=== PATIENT | female | born 1940 | race Caucasian/White ===

== ENCOUNTER 2023-11-03 22:24 | Inpatient (IN) ==
[2023-11-03] MEDS ORDERED: IOPAMIDOL 100 ML BOTTLE IV ONE (22:25)
[2023-11-03 23:24] LABS: Basophils # (Auto) 0.01 K/mcL (0.00-0.30); Basophils % (Auto) 0.1 % (0.0-2.0); Eosinophils # (Auto) 0.14 K/mcL (0.00-0.70); Eosinophils % (Auto) 1.3 % (0.0-7.0); Hematocrit 34.7 % (34.1-44.9); Hemoglobin 11.4 g/dL (11.2-15.7); Lymphocytes # (Auto) 0.66 K/mcL (1.50-4.80); Mean Cell Volume 97.5 fL (80.0-100.0); Mean Corpuscular HGB Conc 32.9 g/dL (31.0-36.0); Mean Platelet Volume 8.4 fL (8.8-12.5); Monocytes # (Auto) 1.71 K/mcL (0.10-0.90); Monocytes % (Auto) 15.6 % (1.0-12.0); Neutrophils % (Auto) 76.6 % (38.0-78.0); Platelet Count 287 K/mcL (140-440); RBC 3.56 M/mcL (3.59-5.38); Red Cell Distribution Width 13.4 % (11.5-14.5)
[2023-11-03] MEDS: DICYCLOMINE 20 MG/2 ML VIAL IM ONE (23:40)
[2023-11-03] MEDS: 0.9 % SODIUM CHLORIDE 1,000 ML IV ONE (23:40)
[2023-11-03 23:47] LABS: ALT/SGPT 25 U/L (<40); AST/SGOT 27 U/L (<32); Albumin/Globulin Ratio 1.5 (1.0-2.3); Alkaline Phosphatase 62 U/L (39-117); Bilirubin,Total 0.6 mg/dL (0.1-1.0); Blood Urea Nitrogen 15 mg/dL (8-23); Calcium 9.2 mg/dL (8.6-10.4); Carbon Dioxide 24 mmol/L (22-30); Chloride 92 mmol/L (96-108); Globulin 2.6 gm/dL (2.2-3.7); Glomerular Filtration Rate 68; Glucose 120 mg/dL (70-105); Potassium 3.9 mmol/L (3.3-5.1); Sodium 127 mmol/L (133-145)
[2023-11-04] MEDS: MAGNESIUM CITRATE 300 ML ORAL.SOL PO ONE (00:15)
[2023-11-04] MEDS: ONDANSETRON 4 MG/2 ML VIAL IV ONE ×2 (01:40→02:27)
[2023-11-04] MEDS: metroNIDAZOLE 500 MG/100 ML BAG IV ONE (01:40)
[2023-11-04] MEDS: FLEETS ADULT 1 DOSE ENEMA PR ONE (01:57)
[2023-11-04 01:59] LABS: Appearance,Urine CLEAR (Clear); Bilirubin,Urine Negative (Negative); Color,Urine YELLOW; Culture Indicated,Urine No; Glucose,Urine (UA) Negative (Negative); Ketones,Urine Negative (Negative); Leukocyte Esterase,Urine Negative /uL (Negative); Nitrate,Urine Negative (Negative); Protein,Urine Negative (Negative); Specific Gravity,Urine 1.021 (1.000-1.035); Urine Blood Negative ery/mcL (Negative)
[2023-11-04] MEDS: metroNIDAZOLE 500 MG/100 ML BAG IV SCH ×2 (02:23→08:47)
[2023-11-04] MEDS: CIPROFLOXACIN 400 MG/200 ML BAG IV ONE (02:35)
[2023-11-04] MEDS ORDERED: DICYCLOMINE 20 MG/2 ML VIAL IM PRN (02:49)
[2023-11-04] MEDS ORDERED: BISACODYL 10 MG SUPP.RECT PR PRN (02:49)
[2023-11-04] MEDS: 0.9 % SODIUM CHLORIDE 1,000 ML IV SCH (02:56)
[2023-11-04] MEDS: 0.9 % SODIUM CHLORIDE 250 ML IV ONE (02:59)
[2023-11-04] MEDS: POLYETHYLENE GLYCOL 3350 17 GM PACKET PO ONE (03:31)
[2023-11-04] MEDS: 0.9 % SODIUM CHLORIDE 10 ML SYRINGE IV SCH (06:27)
[2023-11-04] MEDS: ACETAMINOPHEN 325 MG TABLET PO PRN (07:20)
[2023-11-04] MEDS: SENNOSIDES 1 TABLET PO SCH (08:44)
[2023-11-04] MEDS: ENOXAPARIN 40 MG/0.4 ML SYRINGE SQ SCH (08:44)
[2023-11-04] MEDS: cefTRIAXone 2 GM in DEXTROSE 5% IN WATER 50 ML IV SCH (08:47)
[2023-11-04] MEDS: DICYCLOMINE 20 MG TABLET PO PRN (10:44)
[2023-11-04] MEDS: ONDANSETRON 4 MG/2 ML VIAL IV PRN (10:47)
[2023-11-04] MEDS: POLYETHYLENE GLYCOL 3350 17 GM PACKET PO PRN (13:54)
[2023-11-04] MEDS: PROMETHAZINE 25 MG TABLET PO PRN (14:45)
[2023-11-04] MEDS: ATORVASTATIN 40 MG TABLET PO SCH (21:26)
[2023-11-05 07:24] LABS: ALT/SGPT 35 U/L (<40); AST/SGOT 36 U/L (<32); Albumin 3.7 gm/dL (3.2-5.2); Albumin/Globulin Ratio 1.5 (1.0-2.3); Alkaline Phosphatase 67 U/L (39-117); Bilirubin,Direct 0.3 mg/dL (<0.3); Bilirubin,Total 0.6 mg/dL (0.1-1.0); Blood Urea Nitrogen 7 mg/dL (8-23); Calcium 8.7 mg/dL (8.6-10.4); Carbon Dioxide 23 mmol/L (22-30); Chloride 96 mmol/L (96-108); Globulin 2.5 gm/dL (2.2-3.7); Glomerular Filtration Rate 85; Glucose 111 mg/dL (70-105); Lactate Dehydrogenase 237 U/L (135-225); Phosphorous 1.9 mg/dL (2.5-4.5); Potassium 3.8 mmol/L (3.3-5.1); Sodium 129 mmol/L (133-145); Triglycerides 36 mg/dL (<150); Uric Acid 2.4 mg/dL (2.5-8.0)
[2023-11-05 07:34] LABS: Basophils # (Auto) 0.02 K/mcL (0.00-0.30); Basophils % (Auto) 0.1 % (0.0-2.0); Eosinophils # (Auto) 0.12 K/mcL (0.00-0.70); Eosinophils % (Auto) 0.9 % (0.0-7.0); Hematocrit 32.1 % (34.1-44.9); Hemoglobin 10.5 g/dL (11.2-15.7); Lymphocytes # (Auto) 0.88 K/mcL (1.50-4.80); Lymphocytes % (Auto) 6.6 % (15.5-49.0); Mean Cell Volume 99.1 fL (80.0-100.0); Mean Corpuscular HGB Conc 32.7 g/dL (31.0-36.0); Mean Platelet Volume 8.8 fL (8.8-12.5); Monocytes # (Auto) 1.73 K/mcL (0.10-0.90); Monocytes % (Auto) 12.9 % (1.0-12.0); Neutrophils % (Auto) 78.9 % (38.0-78.0); Platelet Count 314 K/mcL (140-440); RBC 3.24 M/mcL (3.59-5.38); Red Cell Distribution Width 13.6 % (11.5-14.5); WBC 13.4 K/mcL (4.5-11.0)
[2023-11-05] MEDS: OMEPRAZOLE 20 MG CAPSULE PO SCH (08:20)
[2023-11-05] MEDS: ISOSORBIDE MONONITRATE 30 MG TAB.XL.24H PO SCH (08:20)
[2023-11-05] MEDS: LOSARTAN 50 MG TABLET PO SCH (08:20)
[2023-11-05] MEDS: CLOPIDOGREL 75 MG TABLET PO SCH (08:20)
[2023-11-05] MEDS: ESCITALOPRAM 10 MG TABLET PO SCH (08:20)
[2023-11-05] MEDS ORDERED: cefTRIAXone 1 GM VIAL IV SCH (09:00)
[2023-11-05] MEDS: SODIUM PHOSPHATE 30 MMOL in DEXTROSE 5% IN WATER 500 ML IV ONE (11:58)
[2023-11-05] MEDS: POTASSIUM PHOSPHATE 66 MEQ/15 ML VIAL IV ONE (20:51)
[2023-11-05] MEDS: SODIUM PHOSPHATE 15 MMOL in DEXTROSE 5% IN WATER 250 ML IV ONE (22:15)
[2023-11-06 06:53] LABS: Basophils # (Auto) 0.02 K/mcL (0.00-0.30); Basophils % (Auto) 0.2 % (0.0-2.0); Eosinophils # (Auto) 0.22 K/mcL (0.00-0.70); Eosinophils % (Auto) 2.2 % (0.0-7.0); Hematocrit 27.5 % (34.1-44.9); Hemoglobin 9.2 g/dL (11.2-15.7); Lymphocytes # (Auto) 0.75 K/mcL (1.50-4.80); Lymphocytes % (Auto) 7.7 % (15.5-49.0); Mean Cell Volume 97.9 fL (80.0-100.0); Mean Corpuscular HGB Conc 33.5 g/dL (31.0-36.0); Mean Platelet Volume 8.8 fL (8.8-12.5); Monocytes # (Auto) 1.24 K/mcL (0.10-0.90); Monocytes % (Auto) 12.7 % (1.0-12.0); Neutrophils % (Auto) 76.8 % (38.0-78.0); Platelet Count 265 K/mcL (140-440); RBC 2.81 M/mcL (3.59-5.38); Red Cell Distribution Width 13.8 % (11.5-14.5); WBC 9.8 K/mcL (4.5-11.0)
[2023-11-06 07:20] LABS: ALT/SGPT 25 U/L (<40); AST/SGOT 26 U/L (<32); Albumin 3.2 gm/dL (3.2-5.2); Albumin/Globulin Ratio 1.6 (1.0-2.3); Alkaline Phosphatase 54 U/L (39-117); Bilirubin,Direct < 0.2 mg/dL (0-0.3); Bilirubin,Total 0.4 mg/dL (0.1-1.0); Blood Urea Nitrogen 6 mg/dL (8-23); Calcium 8.2 mg/dL (8.6-10.4); Carbon Dioxide 22 mmol/L (22-30); Chloride 100 mmol/L (96-108); Glomerular Filtration Rate 85; Glucose 102 mg/dL (70-105); Lactate Dehydrogenase 152 U/L (135-225); Phosphorous 3.1 mg/dL (2.5-4.5); Potassium 3.5 mmol/L (3.3-5.1); Sodium 133 mmol/L (133-145); Triglycerides 33 mg/dL (<150); Uric Acid 2.4 mg/dL (2.5-8.0)
[2023-11-06] MEDS ORDERED: NITROGLYCERIN 0.4 MG TAB.SUBL SL PRN (07:45)
== END 2023-11-06 14:00 | disposition home or self-care (01) | DRG 392 ==
LOC: ED 22:24 → MEDSUR 11-04 02:40
PROVIDERS: ADMIT Student in an Organized Health Care Education/Training Program; ATTEND Student in an Organized Health Care Education/Training Program